=== PATIENT | male | born 1950 | race Caucasian/White ===

== ENCOUNTER 2017-10-18 11:11 | Observation (INO) | payer OTHER ==
[~2017-10-18] VITALS: Ht 172.7 cm; Wt 104.9 kg
[~2017-10-18 11:11] MED LIST: ALAVERT10 MG PO; ASPIRIN81 M2 PO; CARVEDILOL6.25 MG PO; CRESTOR40 MG PO; Claritin,Alavart PO; Coreg PO; FISH OIL SOFTG1 EACH PO; LASIX20 MG PO; LEXAPRO10 MG PO; Lexapro PO; METFORMIN HCL500 MG PO; Motrin PO; PLAVIX75 MG PO; POTASSIUM CIT-473 ML PO; PROTONIX40 MG PO; SPECTRAVITE1 EAC1 PO; Tylenol Extra Streng PO; Vicodin,Norco 5/325 PO
[2017-10-18 12:11] LABS: HEMATOCRIT 40.3 % (38.0-50.0); MCH 29.4 PG (29.0-34.0); MCV 89.2 FL (86-99); MEAN PLAT.VOLUME 10.2 uM^3 (9.0-12.4); PLATELET COUNT 197 K/uL (156-360); RBC DIS.WIDTH-CV 14.5 % (11.8-14.6); RBC DIS.WIDTH-SD 46.9 % (39-53); RED BLOOD COUNT 4.52 M/uL (4.00-5.50); WHITE BLOOD COUNT 8.4 K/uL (4.1-10.2)
[2017-10-18 12:32] LABS: TROP-I INTERPRETATION NEGATIVE; TROPONIN-I < 0.01 ng/mL (0.0-0.30)
[2017-10-18 12:36] LABS: CHLORIDE 109 mEq/L (99-109); POTASSIUM 4.1 mEq/L (3.7-5.4); SODIUM 141 mEq/L (136-147)
[2017-10-18 12:37] LABS: GLUCOSE 134 mg/dL (70-99)
[2017-10-18 12:39] LABS: ANION GAP 11 MEQ/L (2-14)
[2017-10-18 12:41] LABS: GFR ESTIMATE (CALCULATED) > 59 mL/min/
[2017-10-18 12:42] LABS: UREA NITROGEN (BUN) 18 mg/dL (9-23)
[2017-10-18] MEDS ORDERED: LASIX20 MG PO (13:48)
[2017-10-18] MEDS ORDERED: OMEGA-3 KRILL1 EACH PO (13:51)
[2017-10-18] MEDS ORDERED: METFORMIN HCL500 MG PO (13:53)
[2017-10-18] MEDS ORDERED: GLUCOPHAGE500 MG PO (13:53)
[2017-10-18] MEDS ORDERED: COREG6.25 M1 PO (14:21)
[2017-10-18] MEDS ORDERED: LEXAPRO10 MG PO (14:21)
[2017-10-18] MEDS ORDERED: MOTRIN400 MG PO (14:22)
[2017-10-18] MEDS ORDERED: CLARITIN,ALAVAR10 MG PO (14:22)
[2017-10-18 15:40] VITALS: BP 167/80
[2017-10-18 16:33] LABS: POINT-OF-CARE METER ID UU13113700
[2017-10-18 17:09] LABS: TROP-I INTERPRETATION NEGATIVE; TROPONIN-I < 0.01 ng/mL (0.0-0.30)
[2017-10-18 19:55] VITALS: BP 128/68
[2017-10-18 21:32] LABS: POINT-OF-CARE METER ID UU13113700
[2017-10-18 23:30] VITALS: BP 138/78
[2017-10-18 23:33] LABS: TROP-I INTERPRETATION NEGATIVE; TROPONIN-I < 0.01 ng/mL (0.0-0.30)
[2017-10-19 04:20] VITALS: BP 147/81
[2017-10-19 05:36] LABS: TROP-I INTERPRETATION NEGATIVE; TROPONIN-I < 0.01 ng/mL (0.0-0.30)
[2017-10-19 07:17] VITALS: BP 158/83
[2017-10-19] MEDS ORDERED: ENDOCET 5-3251 EACH PO (07:50)
[2017-10-19 08:47] LABS: POINT-OF-CARE METER ID UU13113831
== END 2017-10-19 11:33 | disposition home or self-care (01) ==
LOC: EME 11:11 → EDOF 13:26 → 5WEST 13:26 → EDOF 13:26 → ENRESERV 13:35 → EDOF 13:55 → 5WEST 15:32 → ENPENDDIS 10-19 → 5WEST 10-19 11:33
PROVIDERS: Emergency Medicine; Hospitalist; Internal Medicine Cardiovascular Disease
DX: R07.89 Other chest pain (principal); I25.10 Atherosclerotic heart disease of native coronary artery without angina pectoris; I10 Essential (primary) hypertension; E11.9 Type 2 diabetes mellitus without complications; E78.5 Hyperlipidemia, unspecified; I42.9 Cardiomyopathy, unspecified; I77.811 Abdominal aortic ectasia; I25.2 Old myocardial infarction; R20.0 Anesthesia of skin; M54.2 Cervicalgia; M79.602 Pain in left arm; Z95.1 Presence of aortocoronary bypass graft; Z95.5 Presence of coronary angioplasty implant and graft; M25.512 Pain in left shoulder; Z79.82 Long term (current) use of aspirin; Z79.02 Long term (current) use of antithrombotics/antiplatelets; Z79.84 Long term (current) use of oral hypoglycemic drugs; Z82.49 Family history of ischemic heart disease and other diseases of the circulatory system
CPT/HCPCS: 71020; 80048; 82948; 84484; 85027; 93005; 99281; 99285; G0378; J1650; J1815